=== PATIENT | male | born 1975 | race Caucasian/White ===

== ENCOUNTER 2018-08-04 09:01 | Observation (INO) | payer MEDICAID, SELFPAY ==
[2018-08-04] VITALS (19 sets, daily range): BP systolic 102–134; BP diastolic 48–84; PULSE 54–93; RESP 14–29; TEMP 36.6–37.1; O2SAT 95–98; BMI 22.5; BMI 20.9; BMI 21.0
--- NOTE | 2018-08-04 09:18 | CT_ITS ---
STUDY: CT BRAIN WITHOUT CONTRAST REASON FOR EXAM: Male, 42 years old. Blurred vision RADIATION DOSAGE (If Supplied By Facility): DLP = ( 812.98 ) mGycm TECHNIQUE: Transaxial CT imaging of the brain was performed without administration of intravenous contrast material. Individualized dose optimization techniques were used for this CT. COMPARISON: None. FINDINGS: There is no acute bleed or infarct. There are normal white matter tracts. The ventricles are normal in configuration. There is no hydrocephalus. Left maxillary sinus and bilateral ethmoid sinus disease is present. The mastoid air cells are well aerated. There is no skull fracture. CT/Brain/Head without Contrast IMPRESSION: No acute intracranial abnormality. Left maxillary sinus and bilateral ethmoid sinus disease. Electronically Signed: Ihsan Kim, at 13:53 EDT Tel , Service support ,
--- NOTE | 2018-08-04 09:18 | EKG12_ITS ---
Test Reason : Blood Pressure : / mmHG Vent. Rate : 061 BPM Atrial Rate : 061 BPM P-R Int : 144 ms QRS Dur : 084 ms QT Int : 400 ms P-R-T Axes : 082 084 058 degrees QTc Int : 402 ms Sinus rhythm with marked sinus arrhythmia Diffuse ST elevation that could represent early repolarization or pericarditis Abnormal ECG Confirmed by YASMEEN CHAKRABORTY ([id number]), editor city [place] ([id number] on 08/08/2018 11:40:09 AM Referred By: Oscar Eddy Confirmed By:RICK CHAKRABORTY
[2018-08-04 09:20] LABS: Bedside Glucose 227 mg/dL (70-110)
--- NOTE | 2018-08-04 09:21 | ED.VISSUMM ---
- ER Visit Summary Date of Service: 08/04/18 Chief Complaint: Vision changes History of Present Illness: The patient is a 42 M with blurry vision for about 30 minutes prior to arrival. This came on when he was driving. Patient reports that he has not been feeling well since yesterday. He had nausea and vomiting with chills and epigastric pain. He has been dealing with nausea and vomiting and is planning to get a scope has not been evaluated further. He described his vision changes as blurriness. This affected both eyes and all ramsey. He denies any visual cuts. Denies speech changes or facial droop. Denies focal weakness or numbness. He denies chest pain or shortness of breath. He has chills but no fever. Patient reports rare alcohol use. He is a former smoker. He uses occasional marijuana. Denies any other illicit drugs or supplements. He does take testosterone which is prescribed for him. Physical Examination: Afebrile and vital signs unremarkable. HEENT exam is unremarkable except for pinpoint pupils bilaterally. Neck is nontender with good range of motion. Heart regular. Lungs clear. Abdomen is tender in the epigastric region. No guarding or rebound. Extremities nontender with no edema. Skin appears normal in color without diaphoresis, pallor, or rash. Cranial nerves grossly intact. Normal strength and sensation. Normal cerebellar testing. NIH stroke scale is 0. Test Results: EKG, lab work, chest x-ray, CT brain, CT abdomen pelvis pending. Emergency Department Course and Treatment: It sounds like the patient's primary issue is the nausea and vomiting. This has been going on for some time, worse since yesterday. He has been having epigastric pain and chills. It sounds like the symptoms were very severe today and he had visual changes. He denies any focal neurologic changes. His NIH stroke scale is normal. I do not believe this is a stroke. I will check a CT of his brain. I also evaluated him for nausea and vomiting with epigastric pain. We will check a chest x-ray, EKG, troponin. Check CBC, CMP, lipase, and CT abdomen. Patient received fluids, morphine, and Zofran while awaiting results. While awaiting results, EKG returned. It showed anterior elevation with inverted T waves. STEMI team was activated. Dr. Eddy evaluated the patient and will take him to the Panel Saw Operator. He received aspirin and heparin. Patient is a white count of 12.7, glucose 237, BUN 30, creatinine 1.66. Hepatic panel and lipase normal. Troponin normal. Imaging is still pending. Treatment Plan: As above Disposition: Admission Impression: 1. Anterior AR 2. Nausea and vomiting This note was generated with Sentri dictation software. It may contain incorrect words, spelling, and punctuation that were not noted in review of the chart prior to signing
[2018-08-04] MEDS: Morphine 4 MG/ML Syringe IV (09:25)
[2018-08-04] MEDS: 0.9% Normal Saline 1,000 ML 1000 ML IV (09:25)
[2018-08-04] MEDS: Ondansetron 4 MG/2 ML Vial IV (09:25)
--- NOTE | 2018-08-04 09:25 | ED.DCSUM_ITS ---
- ER Visit Summary Date of Service: 08/04/18 Chief Complaint: Vision changes History of Present Illness: The patient is a 42 M with blurry vision for about 30 minutes prior to arrival. This came on when he was driving. Patient reports that he has not been feeling well since yesterday. He had nausea and vomiting with chills and epigastric pain. He has been dealing with nausea and vomiting and is planning to get a scope has not been evaluated further. He described his vision changes as blurriness. This affected both eyes and all ramsey. He denies any visual cuts. Denies speech changes or facial droop. Denies focal weakness or numbness. He denies chest pain or shortness of breath. He has chi lls but no fever. Patient reports rare alcohol use. He is a former smoker. He uses occasional marijuana. Denies any other illicit drugs or supplements. He does take testosterone which is prescribed for him. Physical Examination: Afebrile and vital signs unremarkable. HEENT exam is unremarkable except for pinpoint pupils bilaterally. Neck is nontender with good range of motion. Heart regular. Lungs clear. Abdomen is tender in the epigastric region. No guarding or rebound. Extremities nontender with no edema. Skin appears normal in color without diaphoresis, pallor, or rash. Cranial nerves grossly intact. Normal strength and sensation. Normal cerebellar testing. NIH stroke scale is 0. Test Results: EKG, lab work, chest x-ray, CT brain, CT abdomen pelvis pending. Emergency Department Course and Treatment: It sounds like the patient's primary issue is the nausea and vomiting. This has been going on for some time, worse since yesterday. He has been having epigastric pain and chills. It sounds like the symptoms were very severe today and he had visual changes. He denies any focal neurologic changes. His NIH stroke scale is normal. I do not believe this is a stroke. I will check a CT of his brain. I also evaluated him for nausea and vomiting with epigastric pain. We will ch leila a chest x-ray, EKG, troponin. Check CBC, CMP, lipase, and CT abdomen. Patient received fluids, morphine, and Zofran while awaiting results. While awaiting results, EKG returned. It showed anterior elevation with inverted T waves. STEMI team was activated. Dr. Eddy evaluated the patient and will take him to the Super[facility]. He received aspirin and heparin. Patient is a white count of 12.7, glucose 237, BUN 30, creatinine 1.66. Hepatic panel and lipase normal. Troponin normal. Imaging is still pending. Treatment Plan: As above Disposition: Admission Impression: 1. Anterior SC 2. Nausea and vomiting This note was generated with Pegg[employer] dictation software. It may contain incorrect words, spelling, and punctuation that were not noted in review of the chart prior to signing
[2018-08-04 09:27] LABS: Absolute Lymphocyte Count 0.77 X10^3/ul (0.83-4.51); Absolute Neutrophil Count 11.2 X10^3/uL (2.0-7.7); Hematocrit 41.6 % (40-54); Hemoglobin 14.8 g/dl (13.0-16.5); Lymphocyte # 0.77 X10^3/ul (4.0); Mean Corp Hgb Conc 35.6 g/gl (32-36); Mean Corpuscular Hgb 32.7 pg (27.0-32.0); Mean Corpuscular Volume 91.8 fL (80-94); Mean Platelet Vol. 10.4 fl (6.2-12.0); Monocyte# 0.77 X10^3/uL; Neutrophil # 11.17 X10^3/uL (2.7-7.7); Neutrophil % 87.8 % (47-70); Platelet Count 315 K/mm3 (150-450); RBC Distribution Width CV 13.3 % (11.6-14.6); RBC Distribution Width SD 44.5 fl (35.1-43.9); Red Blood Count 4.53 M/mm3 (4.6-6.2); White Blood Count 12.7 K/mm3 (4.4-11.0)
[2018-08-04 09:28] LABS: POSITIVE COUNT NO; POSITIVE DIFFERENTIAL NO; POSITIVE MORPHOLOGY NO
--- NOTE | 2018-08-04 09:33 | RAD_ITS ---
STUDY: X-RAY CHEST REASON FOR EXAM: Male, 42 years old. Chest pain. TECHNIQUE: Single AP portable view of the chest. COMPARISON: None. FINDINGS: The lungs are clear and expanded. There is no demonstrated pleural abnormality. Normal size heart. Normal mediastinum and denisse. Normal visualized pulmonary arteries. Normal visualized aortic arch and descending thoracic aorta. Normal visualized thoracic spine. Normal visualized ribs, clavicles, and shoulders. There is no demonstrated abnormality of the visualized soft tissue structures of the upper abdomen. RAD/Chest 1 View (Portable) IMPRESSION: No evidence of acute cardiopulmonary process. Electronically Signed: Parker Rowe DO at 9:59 EDT , Service support ,
[2018-08-04] MEDS: Aspirin 81 MG TAB.CHEW 324 MG PO (09:34)
[2018-08-04 09:43] LABS: AST(SGOT) 16 U/L (15-37); Alanine Aminotransfer ALT/SGPT 27 U/L (16-61); Albumin, Serum 3.7 g/dL (3.2-5.0); Alkaline Phosphatase 69 U/L (45-117); Anion Gap 9 (5-15); BUN 30 mg/dL (7-18); BUN/Creat Ratio 18.1 RATIO (10-20); Calcium,Total 8.5 mg/dL (8.5-10.1); Chloride 103 mmol/L (98-107); Creatinine, Serum 1.66 mg/dL (0.70-1.30); EST Glomerular Filtration Rate 49 mL/min (>60); Est Glom Filt Rate - Afr Amer 59 mL/min (>60); Estimated Creatinine Clearance 64.84 ml/min; Globulin 3.6 g/dL (2.2-4.2); Glucose 237 mg/dL (74-106); Lipase 56 U/L (73-393); Potassium 3.7 mmol/L (3.5-5.1); Protein, Total 7.3 g/dL (6.4-8.2); Sodium Level 138 mmol/L (136-145)
[2018-08-04] MEDS: Heparin 10,000 UNITS/10 ML Vial 4000 UNITS IV (09:56)
--- NOTE | 2018-08-04 10:48 | PCM.CONS.C ---
Reason for Consult Date of Consultation: 08/04/18 History of Present Illness: The patient is a 42 year old M with past medical history significant for peptic ulcer disease and low testosterone levels. He presented to the emergency room with complaints of nausea vomiting and blurred vision. According to the patient, he became nauseous yesterday. It is persistent. He has been unable to keep any food down. 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 He was driving today when he developed blurry vision. This worried him so he presented to the emergency room. In the emergency room, will work-up revealed an abnormal EKG with ST elevations and T wave inversions in leads V3, V4 and V5. Subsequently a STEMI alert was called. Patient denies any chest pain pressure or shortness of breath. Denies any orthopnea or PND. [] Past Medical History Allergies/Adverse Reactions: Allergies No Known Allergies Allergy (Verified 08/04/18 09:03) Home Medications: Ambulatory Orders Medication Instructions Recorded Lansoprazole [Prevacid] 30 mg PO DAILY 08/04/18 Testosterone Cypionate [Testone 200 mg IM QWEEK 08/04/18 Cik] Smoking Status: Former smoker Review of Systems - Review of Systems General: Denies: Fever, Anorexia HEENT: Reports: Vision Change, Blurred Vision. Denies: Head Aches Cardiovascular: Denies: Chest Discomfort, Chest Discomfort at Rest, Chest Discomfort with Exertion, Shortness of Breath, Orthopnea, PND, Peripheral Edema, Palpitations, Lightheadedness, Near Syncope, Syncope Gastrointestinal: Reports: Epigastric Discomfort - Mild epigastric discomfort, Nausea, Emesis. Denies: Hematemesis, Melena, Diarrhea Neurological: Denies: Vertigo, Falls, History of TIA, History of CVA Endocrine: Reports: - - History of low testosterone levels. On supplement.. Denies: Heat Intolerance, Cold Intolerance Hematologic/ Lymphatic: Denies: Easy Brusing, Easy Bleeding Subjectve: Comfortable. No apparent distress. Objective: Vital Signs Temp Pulse Resp BP Pulse Ox 98.4 F 73 14 123/80 H 98 08/04/18 09:04 08/04/18 09:04 08/04/18 09:29 08/04/18 09:29 08/04/18 09:04 Oxygen Delivery Method Room Air Weight: 77.5 kg Body Mass Index (BMI) 22.5 Finger Stick Blood Glucose 227 General: Awake, Alert, Oriented x 3, In Acute Distress HEENT: Atraumatic, Normocephalic Neck: Supple, No JVD Lungs: Clear to auscultation Cardiovascular: Regular Rhythm, Normal S1, Normal S2, No Murmurs, No Rubs Abdomen: Bowel Sounds Present, Soft, - - Mild tenderness in epigastrium. No rebound or guarding. Neurological: - - Moving all 4 extremities. Psych/Mental Status: Appropriate 08/04/18 09:05: WBC 12.7 H, RBC 4.53 L, Hgb 14.8, Hct 41.6, MCV 91.8, MCH 32.7 H, MCHC 35.6, RDW 13.3, RDW Differential 44.5 H, Plt Count 315, MPV 10.4, Immature Gran % (Auto) 0.200, Neut % (Auto) 87.8 H, Lymph % (Auto) 6.0 L, [place] % (Auto) 6.0, Eos % (Auto) 0.0, Baso % (Auto) 0.0, Absolute Neuts (auto) 11.2 H, Total Counted Not Reportable 08/04/18 09:05: Sodium 138, Potassium 3.7, Chloride 103, Carbon Dioxide 26.0, Anion Gap 9, BUN 30 H, Creatinine 1.66 H, Est GFR (MDRD) Af Amer 59 L, Est GFR (MDRD) Non-Af 49 L, BUN/Creatinine Ratio 18.1, Glucose 237 H, Calcium 8.5, Total Bilirubin 0.60, Troponin I < 0.015 Rhythm: Normal sinus rhythm with sinus arrhythmia. EKG: Normal sinus rhythm with marked sinus arrhythmia. ST elevation in lead V3, V4, V5 with T wave inversion. Possible anterior injury pattern. ECHO: Stress Test: Cardiac Cath: PCI: CT Surgery: Holter monitor: EPS: PPM: CXR: Chest CT Scan: Assessment/Plan 1. Persistent nausea with vomiting. EKG changes suggestive of ST elevation [place]. Patient was advised cardiac catheterization with coronary angiography and possible revascularization. Risks benefits were explained. After obtaining informed consent, patient was brought to the cardiac catheterization lab. Coronary angiography revealed no angiographic disease. MARKIE-3 flow noted in all epicardial vessels. Overall normal left ventricular systolic function with ejection fraction of 60 to 65%. EKG changes likely secondary to hyperadrenergic state with persistent nausea/vomiting or FIRE HAZARD INSPECTOR cause. Consider CT scan of the head. 2. Evaluate GI/FIRE HAZARD INSPECTOR causes of persistent nausea with vomiting as per internal medicine/ER. 3. History of low testosterone levels. 4. History of peptic ulcer disease. On long-term PPI. Recommend one-time follow-up with cardiology as outpatient in 1-2 weeks after discharge home.
--- NOTE | 2018-08-04 10:52 | CON.PCM_ITS ---
Reason for Consult Date of Consultation: 08/04/18 History of Present Illness: The patient is a 42 year old M with past medical history significant for peptic ulcer disease and low testosterone levels. He presented to the emergency room with complaints of nausea vomiting and blurred vision. According to the patient, he became nauseous yesterday. It is persistent. He has been unable to keep any food down. 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 He was driving today when he developed blurry vision. This worried him so he presented to the emergency room. In the emergency room, will work-up revealed an abnormal EKG with ST elevations and T wave inversions in leads V3, V4 and V5. Subsequently a STEMI alert was called. Patient denies any chest pain pressure or shortness of breath. Denies any orthopnea or PND. [] Past Medical History Allergies/Adverse Reactions: Allergies No Known Allergies Allergy (Verified 08/04/18 09:03) Home Medications: Ambulatory Orders Medication Instructions Recorded Lansoprazole [Prevacid] 30 mg PO DAILY 08/04/18 Testosterone Cypionate [Testone 200 mg IM QWEEK 08/04/18 Cik] Smoking Status: Former smoker Review of Systems - Review of Systems General: Denies: Fever, Anorexia HEENT: Reports: Vision Change, Blurred Vision. Denies: Head Aches Cardiovascular: Denies: Chest Discomfort, Chest Discomfort at Rest, Chest Discomfort with Exertion, Shortness of Breath, Orthopnea, PND, Peripheral Edema, Palpitations, Lightheadedness, Near Syncope, Syncope Gastrointestinal: Reports: Epigastric Discomfort - Mild epigastric discomfort, Nausea, Emesis. Denies: Hematemesis, Melena, Diarrhea Neurological: Denies: Vertigo, Falls, History of TIA, History of CVA Endocrine: Reports: - - History of low testosterone levels. On supplement.. Denies: Heat Intolerance, Cold Intolerance Hematologic/ Lymphatic: Denies: Easy Brusing, Easy Bleeding Subjectve: Comfortable. No apparent distress. Objective: Vital Signs Temp Pulse Resp BP Pulse Ox 98.4 F 73 14 123/80 H 98 08/04/18 09:04 08/04/18 09:04 08/04/18 09:29 08/04/18 09:29 08/04/18 09:04 Oxygen Delivery Method Room Air Weight: 77.5 kg Body Mass Index (BMI) 22.5 Finger Stick Blood Glucose 227 General: Awake, Alert, Oriented x 3, In Acute Distress HEENT: Atraumatic, Normocephalic Neck: Supple, No JVD Lungs: Clear to auscultation Cardiovascular: Regular Rhythm, Normal S1, Normal S2, No Murmurs, No Rubs Abdomen: Bowel Sounds Present, Soft, - - Mild tenderness in epigastrium. No rebound or guarding. Neurological: - - Moving all 4 extremities. Psych/Mental Status: Appropriate 08/04/18 09:05: WBC 12.7 H, RBC 4.53 L, Hgb 14.8, Hct 41.6, MCV 91.8, MCH 32.7 H , MCHC 35.6, RDW 13.3, RDW Differential 44.5 H, Plt Count 315, MPV 10.4, Immature Gran % (Auto) 0.200, Neut % (Auto) 87.8 H, Lymph % (Auto) 6.0 L, [place] % (Auto) 6.0, Eos % (Auto) 0.0, Baso % (Auto) 0.0, Absolute Neuts (auto) 11.2 H, Total Counted Not Reportable 08/04/18 09:05: Sodium 138, Potassium 3.7, Chloride 103, Carbon Dioxide 26.0, Anion Gap 9, BUN 30 H, Creatinine 1.66 H, Est GFR (MDRD) Af Amer 59 L, Est GFR (MDRD) Non-Af 49 L, BUN/Creatinine Ratio 18.1, Glucose 237 H, Calcium 8.5, Total Bilirubin 0.60, Troponin I < 0.015 Rhythm: Normal sinus rhythm with sinus arrhythmia. EKG: Normal sinus rhythm with marked sinus arrhythmia. ST elevation in lead V3, V4, V5 with T wave inversion. Possible anterior injury pattern. ECHO: Stress Test: Cardiac Cath: PCI: CT Surgery: Holter monitor: EPS: PPM: CXR: Chest CT Scan: Assessment/Plan 1. Persistent nausea with vomiting. EKG changes suggestive of ST elevation [place]. Patient was advised cardiac catheterization with coronary angiography and possible revascularization. Risks benefits were explained. After obtaining informed consent, patient was brought to the cardiac catheterization lab. Coronary angiography revealed no angiographic disease. MARKIE-3 flow noted in all epicardial vessels. Overall normal left ventricular systolic function with ejection fraction of 60 to 65%. EKG changes likely secondary to hyperadrenergic state with persistent nausea/vomiting or LIBRARY DIRECTOR cause. Consider CT scan of the head. 2. Evaluate GI/LIBRARY DIRECTOR causes of persistent nausea with vomiting as per internal medicine/ER. 3. History of low testosterone levels. 4. History of peptic ulcer disease. On long-term PPI. Recommend one-time follow-up with cardiology as outpatient in 1-2 weeks after discharge home.
[2018-08-04 10:55] LABS: ACT Activated Clotting Time 164 sec (74-137)
--- NOTE | 2018-08-04 11:20 | HP.PCM_ITS ---
History of Present Illness Date of Admission: 08/04/18 Chief Complaint: nausea, vomiting, epigastric pain The patient is a 42 year old M with a past medical history of peptic ulcer disease and hypo-gonadism. He was admitted through the ED on 08/04/2018 with a complaint of nausea and vomiting as well as as epigastric pain. Patient states he and his family went to eat at a [employer] style [employer] restaurant on the night before admission. He ate mainly seafood and vegetables. He subsequently started having severe intractable nausea and vomiting which lasted throughout the night and continued to this morning. Patient states emesis was of clear fluid and anything he ate, he pretty much vomited it. It was noticed that 1 of his children weights the same thing also had similar symptoms though other silhouettes at the [employer] to by a different foods he did not have similar symptoms. He decided to get into his truck to go to work but started having blurred vision and lightheadedness as well as epigastric pain and so he called an ambulance and was brought to the ED. In the ED vitals were stable and cre atinine was 1.66. Baseline not known. Chest x-ray showed no acute cardiopulmonary process and CBC showed elevated white cell count of 12.7. EKG done showed some ST elevation in lateral leads were STEMI alert was called and patient was rushed to the [facility]. He had a cardiac cath which showed normal coronaries. He is therefore been admitted to be managed for acute enteritis likely due to food poisoning. [] Past Medical History Allergies No Known Allergies Allergy (Verified 08/04/18 09:03) Home Medications: Ambulatory Orders Medication Instructions Recorded Lansoprazole [Prevacid] 30 mg PO DAILY 08/04/18 Testosterone Cypionate [Testone 200 mg IM QWEEK 08/04/18 Cik] Surgical History: no surgical history Psychiatric History: No pertinent psych hx Lives: With Family Smoking Status: Former smoker - quit a few months ago, smoked 1 pack daily Alcohol: None Drugs: None - *Family History Maternal History Items: Diabetes, Heart Disease Paternal History Items: Diabetes Review of Systems Constitutional: Reports: Anorexia, Chills, Fever, Malaise, Weakness, Weight Change - says he has lost weight over the past few months, but cannot quantify weight loss. Denies: Fatigue Eyes: Reports: Blurred vision. Denies: Double vision HEENT: Denies: Head Aches, Sinus Congestion, Sinus Drainage Cardiovascular: Denies: Chest Pain, Chest Pressure, Chest Tightness, Palpitations Respiratory: Denies: Cough, Shortness of Breath, Shortness of breath at rest, Sputum production Gastrointestinal: Reports: Abdominal Pain, Nausea, Vomiting. Denies: Constipation, Diarrhea, Dyspepsia, Hematemesis, Hematochezia, Melena Genitourinary: Denies: Dysuria Musculoskeletal: Denies: Joint Pain, Joint Tenderness Skin: Denies: Rash, Wounds Neurological: Denies: Numbness, Tingling, Focal weakness Psychiatric: Denies: Anxiety, Depression, Homicidal Ideations, Suicidal Ideations Hematologic/ Lymphatic: Denies: Easy Bruising, Easy Bleeding VTE Information - Inpt Only VTE Present on Admission: No VTE Pharm Prophylaxis ordered?: Yes - Physical Exam General: Alert, Oriented x3, Cooperative HEENT: Atraumatic Oral: Dry Mucosa Neck: Supple, No JVD, Negative Carotid Bruits Lungs: Clear to auscultation, Normal air movement, No rhonchi, No wheeze, No rales Cardiovascular: Regular rate, Regular Rhythm, Normal S1, Normal S2, No murmurs Abdomen: Bowel Sounds Present, Soft, Non Tender, Non-Distended, No Hepato- splenomegaly Extremities: No edema, Capillary Refill Less than 3 Seconds Skin: No rashes, No breakdown Musculoskeletal: No Tenderness to Palpation of Joints or Extremities, - - cath site at right wrist clean. in tight pressure dressing Lymphatic: No Cervical, Supraclavicular, or Inguinal Adenopathy Neurological: Cranial nerves II-XII grossly intact, Neuro grossly intact, Motor Exam 5/5 strength throughout Psych/Mental Status: Normal Affect, Appropriate, Alert and oriented to time, place, person, mood and affect Vital Signs Temp Pulse Resp BP Pulse Ox 98.4 F 73 14 123/80 H 98 08/04/18 09:04 08/04/18 09:04 08/04/18 09:29 08/04/18 09:29 08/04/18 09:04 Oxygen Delivery Method Room Air Weight: 170 lb 13.732 oz Body Mass Index (BMI) 22.5 Finger Stick Blood Glucose 227 Laboratory Tests Past 24 Hrs 08/04/18 08/04/18 08/04/18 09:05 09:05 10:21 WBC 12.7 H RBC 4.53 L Hgb 14.8 Hct 41.6 MCV 91.8 MCH 32.7 H MCHC 35.6 RDW 13.3 RDW Differential 44.5 H Plt Count 315 MPV 10.4 Immature Gran % (Auto) 0.200 Neut % (Auto) 87.8 H Lymph % (Auto) 6.0 L [place] % (Auto) 6.0 Eos % (Auto) 0.0 Baso % (Auto) 0.0 Absolute Neuts (auto) 11.2 H Absolute Lymphs (auto) 0.77 L Total Counted Not Reportable Activated Clotting Time 164 H Sodium 138 Potassium 3.7 Chloride 103 Carbon Dioxide 26.0 Anion Gap 9 BUN 30 H Creatinine 1.66 H Estim Creat Clear Calc 64.84 Est GFR (MDRD) Af Amer 59 L Est GFR (MDRD) Non-Af 49 L BUN/Creatinine Ratio 18.1 Glucose 237 H Calcium 8.5 Total Bilirubin 0.60 AST 16 ALT 27 Alkaline Phosphatase 69 Troponin I < 0.015 Total Protein 7.3 Albumin 3.7 Globulin 3.6 Albumin/Globulin Ratio 1.0 Lipase 56 L POC Glucose 08/04/18 09:14 POC Glucose 227 H Diagnostic Data Chest X-Ray 08/04/18 09:33 IMPRESSION: No evidence of acute cardiopulmonary process. Electronically Signed: Parker Rowe DO at 9:59 EDT , Service support , Assessment/Plan 42-year-old male admitted with a complaint of excessive nausea and vomiting as well as epigastric pain. He was found to have ST elevation in lateral leads. 1. Enteritis likely due to food poisoning * Came with blurred vision, nausea and vomiting * Cath done on account of ST elevation lateral leads showed normal coronaries. * I think epigastric pain was due to reflux and history of peptic ulcer disease. * admit to PCU with telemetry * hydrate with IVF NS @ 150cc/hr * IV zofran * clear liquid diet for now, and advance as tolerated * 2. EKG changes * EKG findings on admission were suggestive of ST elevation [place] in lateral leads. * cardiac cath showed normal coronaries * cardiology on board * 3. GERD * also has history of PUD * I think the epigastric pain was due to reflux * will give IV pantoprazole 40mg daily * 4. MAXIM: Cr is 1.66. No baseline available. Hydrate with IVF and trend Cr 5. History of hypogonadism: Stable. DVT prophylaxis: SCDs for now Code Visit OBSV E&M: [id number] Initial observation care L3
[2018-08-04] MEDS: 0.9% Normal Saline 1,000 ML 150 ML IV ×2 (12:20→19:20)
--- NOTE | 2018-08-04 14:10 | CL.D_ITS ---
Patient Name: GEE FREDERICK Study Date: 08/04/2018 Performing: Oscar Eddy MD Ht: 73 inches 185 cm : 1975 Wt: 172.2 lbs 78 kg Age: 42 Gender: male BSA: 2.01 PROCEDURE(S) PERFORMED MT67-CJG/COR/LV CLINICAL PROFILE AND INDICATIONS Heart Failure: None CAD Presentations: STEMI. Symptom onset Date/Time: 08/03/2018 Time Not Available CONCLUSIONS No angiographic CAD RECOMMENDATIONS Evaluate for non-cardiac causes of symptoms DESCRIPTION OF PROCEDURE The patient arrived to the procedure lab. The risks and benefits of the procedure as well as a full d escription of our services here and current unavailability of surgical backup were fully explained to the patient and/or their significant other prior to the catheterization. The Timeout was completed, verifying the correct patient and procedure. The patient's procedural site was prepped and draped in the usual fashion. Local anesthetic was given subcutaneously to right radial region with Lidocaine 2% . Using a modified Seldinger technique, arterial access was obtained via the right radial artery, a 6 Fr sheath was inserted. Left Coronary Artery selective angiography was performed in multiple views u sing a 5 Fr. 4.0 Clifton catheter. Right Coronary Artery selective angiography was then performed in mu ltiple views using a 5 Fr. 4.0 Clifton catheter. Left Ventriculography was performed in PATEL projection using a 5 Fr. Pigtail catheter. LV to AO pullback pressures were then recorded.The arterial sheath was pulled and a TR Band was applied for hemostasis CORONARY ANGIOGRAPHY DOMINANCE: Left Dominant LEFT HEART ASSESSMENT Left Ventricular Ejection Fraction: by LV Gram 65 % LVEDP: 7 mmHg LEFT MAIN: Short left main. No angiographic disease LEFT ANTERIOR DESCENDING ARTERY: Angiographically normal CIRCUMFLEX ARTERY: Angiographically normal RIGHT CORONARY ARTERY: Angiographically normal COMPLICATIONS No Complications PROCEDURE MEDICATIONS Oxygen: 2 L/min via nasal cannula IV Bolus: .9 NaCl 500 ml total 08/04/2018 10:32:09 SUMMARY OF HEMODYNAMIC DATA Time AIR REST ECG 10:15:09 AO 112/67 (85) SA 10:21:05 LV 123/-10, 7 10:29:08 LV 130/-11, 4 10:29:15 AOp 104/19 (52) 10:30:36 LVp 101/17, 19 10:30:46 AOp 96/75 (88) 10:30:51 Signed By Oscar Eddy MD On 08/04/2018 14:09:27 Oscar Eddy MD
[2018-08-05] MEDS: 0.9% Normal Saline 1,000 ML 150 ML IV (01:22)
[2018-08-05 01:26] VITALS: PULSE 83
[2018-08-05 01:30] VITALS: BP 96/54; PULSE 68; RESP 16; TEMP 36.9; O2SAT 98
[2018-08-05 06:04] VITALS: PULSE 47
[2018-08-05 06:23] LABS: Absolute Lymphocyte Count 3.04 X10^3/ul (0.83-4.51); Absolute Neutrophil Count 5.1 X10^3/uL (2.0-7.7); Basophil# 0.02 X10^3/uL; Basophil% 0.2 % (0-1); Eosinophil# 0.13 X10^3/uL; Eosinophils% 1.4 % (0-5); Hematocrit 39.3 % (40-54); Hemoglobin 13.2 g/dl (13.0-16.5); Lymphocyte # 3.04 X10^3/ul (4.0); Mean Corp Hgb Conc 33.6 g/gl (32-36); Mean Corpuscular Hgb 31.4 pg (27.0-32.0); Mean Corpuscular Volume 93.6 fL (80-94); Mean Platelet Vol. 10.4 fl (6.2-12.0); Monocyte% 9.8 % (0-10); Neutrophil # 5.11 X10^3/uL (2.7-7.7); Neutrophil % 55.4 % (47-70); Platelet Count 227 K/mm3 (150-450); RBC Distribution Width CV 13.5 % (11.6-14.6); RBC Distribution Width SD 44.9 fl (35.1-43.9); White Blood Count 9.2 K/mm3 (4.4-11.0)
[2018-08-05 06:28] LABS: POSITIVE COUNT NO; POSITIVE DIFFERENTIAL NO; POSITIVE MORPHOLOGY NO
[2018-08-05 06:40] VITALS: BP 114/75; PULSE 64; RESP 16; TEMP 36.6; O2SAT 100
[2018-08-05 06:49] LABS: Anion Gap 2 (5-15); BUN 15 mg/dL (7-18); BUN/Creat Ratio 15.5 RATIO (10-20); Calcium,Total 7.9 mg/dL (8.5-10.1); Chloride 113 mmol/L (98-107); Creatinine, Serum 0.97 mg/dL (0.70-1.30); EST Glomerular Filtration Rate 91 mL/min (>60); Est Glom Filt Rate - Afr Amer 110 mL/min (>60); Estimated Creatinine Clearance 103.27 ml/min; Glucose 89 mg/dL (74-106); Potassium 4.4 mmol/L (3.5-5.1); Sodium Level 143 mmol/L (136-145)
[2018-08-05 06:55] VITALS: PULSE 49
--- NOTE | 2018-08-05 10:51 | PCM.DC ---
You will use the following diet at home:: Cardiac Your food should be the consistency of: Regular Your liquids should be the consistency of: Regular/Thin Discharge Activity: Return to Normal Activity Weight Bearing Status: Weight bearing as tolerated Call your doctor if you observe: Fever of 101 or Higher, Dizziness, Swelling in the ankles, Chest pain Instructions: ED Food Poison Or Gastroenteritis Allergies/Adverse Reactions: Allergies No Known Allergies Allergy (Verified 08/04/18 09:03) Medications to take at Discharge Lansoprazole [Prevacid] 30 mg PO DAILY 08/04/18 Testosterone Cypionate [Testone Cik] 200 mg IM QWEEK 08/04/18 Primary Care Physician: [facility] ,Out of [Primary Care Provider] - Please follow up with your Primary Care Physician in: one week Test Results: Test results from this visit will be discussed in further detail at your follow-up appointment, if applicable. Please Follow Up With: Roc Romero MD When: one week Proposed Discharge Date: 08/05/18
[2018-08-05 10:55] VITALS: BP 106/72; PULSE 59; RESP 16; TEMP 36.6; O2SAT 96
--- NOTE | 2018-08-05 12:28 | PCM.DC.SUM ---
Discharge Date and Diagnosis Date of Admission: 08/04/18 Date of Discharge: 08/05/18 - Primary Discharge Diagnosis acute enteritis abnormal EKG changes Hospital Course and Treatment Imaging Results: Diagnostic Data Brain CT 08/04/18 09:18 IMPRESSION: No acute intracranial abnormality. Left maxillary sinus and bilateral ethmoid sinus disease. Electronically Signed: Ihsan Judy, at 13:53 EDT Tel , Service support , Chest X-Ray 08/04/18 09:33 IMPRESSION: No evidence of acute cardiopulmonary process. Electronically Signed: Parker Rowe, DO at 9:59 EDT , Service support , Cardiology- Dr Eddy Operations: None Procedures: Cardiac catheterization Summary of Care Provided: The patient is a 42 year old M with a past medical history of peptic ulcer disease and hypo-gonadism. He was admitted through the ED on 08/04/2018 with a complaint of nausea and vomiting as well as as epigastric pain. Patient states he and his family went to eat at a [employer] style [employer] restaurant on the night before admission. He ate mainly seafood and vegetables. He subsequently started having severe intractable nausea and vomiting which lasted throughout the night and continued to this morning. Patient states emesis was of clear fluid and anything he ate, he pretty much vomited it. It was noticed that 1 of his children weights the same thing also had similar symptoms though other silhouettes at the buffet to by a different foods he did not have similar symptoms. He decided to get into his truck to go to work but started having blurred vision and lightheadedness as well as epigastric pain and so he called an ambulance and was brought to the ED. In the ED vitals were stable and creatinine was 1.66. Baseline not known. Chest x-ray showed no acute cardiopulmonary process and CBC showed elevated white cell count of 12.7. EKG done showed some ST elevation in lateral leads were STEMI alert was called and patient was rushed to the Chemical Process Analyst. He had a cardiac cath which showed normal coronaries. He was admitted to be managed for acute enteritis likely due to food poisoning, and abnormal EKG changes. He was hydrated with IVF and given IV zofran for nausea and vomiting. Symptoms resolved completely. He remained stable and was discharged home on 08/05/18. He is to follow up with his PCP and with cardiology. Patient seen and examined prior to discharge. He had no complaints, felt well and was eager to go home. Review of systems was otherwise negative. Labs and vitals reviewed. Home medications reviewed and reconciled. o/e: Vital Signs Height 6 ft 1 in Weight: 159 lb Weight in Pounds 159.0 lbs Pulse Ox 96 Temperature 97.9 F Pulse Rate 59 Respiratory Rate 16 Blood Pressure 106/72 Blood Pressure Position Semi-Fowlers []General: Alert, Oriented x3, Cooperative HEENT: Atraumatic Oral: Dry Mucosa Neck: Supple, No JVD, Negative Carotid Bruits Lungs: Clear to auscultation, Normal air movement, No rhonchi, No wheeze, No rales Cardiovascular: Regular rate, Regular Rhythm, Normal S1, Normal S2, No murmurs Abdomen: Bowel Sounds Present, Soft, Non Tender, Non-Distended, No Hepato-splenomegaly Extremities: No edema, Capillary Refill Less than 3 Seconds Skin: No rashes, No breakdown Musculoskeletal: No Tenderness to Palpation of Joints or Extremities, - - cath site at right wrist clean. pressure dressing removed. Lymphatic: No Cervical, Supraclavicular, or Inguinal Adenopathy Neurological: Cranial nerves II-XII grossly intact, Neuro grossly intact, Motor Exam 5/5 strength throughout Psych/Mental Status: Normal Affect, Appropriate, Alert and oriented to time, place, person, mood and affect Plan as above. - Physical Exam Vital Signs Temp Pulse Resp BP Pulse Ox 97.9 F 59 L 16 106/72 96 08/05/18 10:55 08/05/18 10:55 08/05/18 10:55 08/05/18 10:55 08/05/18 10:55 Oxygen Delivery Method Room Air Weight: 159 lb Body Mass Index (BMI) 20.9 Finger Stick Blood Glucose 227 Intake and Output for Last 24 Hours 08/03/18 08/04/18 08/05/18 23:59 23:59 23:59 Intake Total 3637 / 8 1083 / 1083 Balance 3637 1083 / 1083 Laboratory Tests Past 24 Hrs 08/05/18 08/05/18 05:57 05:57 WBC 9.2 RBC 4.20 L Hgb 13.2 Hct 39.3 L MCV 93.6 MCH 31.4 MCHC 33.6 RDW 13.5 RDW Differential 44.9 H Plt Count 227 MPV 10.4 Immature Gran % (Auto) 0.200 Neut % (Auto) 55.4 Lymph % (Auto) 33.0 [place] % (Auto) 9.8 Eos % (Auto) 1.4 Baso % (Auto) 0.2 Absolute Neuts (auto) 5.1 Absolute Lymphs (auto) 3.04 Total Counted Not Reportable Sodium 143 Potassium 4.4 Chloride 113 H Carbon Dioxide 28.0 Anion Gap 2 L BUN 15 Creatinine 0.97 Estim Creat Clear Calc 103.27 Est GFR (MDRD) Af Amer 110 Est GFR (MDRD) Non-Af 91 BUN/Creatinine Ratio 15.5 Glucose 89 Calcium 7.9 L Diagnostic Data Brain CT 08/04/18 09:18 IMPRESSION: No acute intracranial abnormality. Left maxillary sinus and bilateral ethmoid sinus disease. Electronically Signed: Ihsan Kim, at 13:53 EDT Tel , Service support , Chest X-Ray 08/04/18 09:33 IMPRESSION: No evidence of acute cardiopulmonary process. Electronically Signed: Parker Rowe DO at 9:59 EDT , Service support , Discharge Diet: Low fat/ Low Cholesterol Discharge Activity: Return to Normal Activity Weight Bearing Status: Weight bearing as tolerated Call your doctor if you observe: Fever of 101 or Higher, Dizziness, Swelling in the ankles, Chest pain Home Medications: Medications to take at Discharge Lansoprazole [Prevacid] 30 mg PO DAILY 08/04/18 Testosterone Cypionate [Testone Cik] 200 mg IM QWEEK 08/04/18 Primary Care Physician: [facility],Out of [Primary Care Provider] - Please follow up with your Primary Care Physician in: one week Please Follow Up With: Roc Romero MD When: one week Patient Instructions: ED Food Poison Or Gastroenteritis Disposition: Home Minutes spent on discharge:: 35 Patient Condition:: Stable Medical Necessity - Tobacco Use Smoking Status: Former smoker - quit a few months ago, smoked 1 pack daily Meaningful Use Info Meaningful Use Diagnoses (Choose all that apply): None applicable Code Visit Inpatient E&M: 27602 Disch Hosp
--- NOTE | 2018-08-05 12:38 | DS.PCM_ITS ---
Discharge Date and Diagnosis Date of Admission: 08/04/18 Date of Discharge: 08/05/18 - Primary Discharge Diagnosis acute enteritis abnormal EKG changes Hospital Course and Treatment Imaging Results: Diagnostic Data Brain CT 08/04/18 09:18 IMPRESSION: No acute intracranial abnormality. Left maxillary sinus and bilateral ethmoid sinus disease. Electronically Signed: Ihsan Judy, at 13:53 EDT Tel , Service support , Chest X-Ray 08/04/18 09:33 IMPRESSION: No evidence of acute cardiopulmonary process. Electronically Signed: Parker Rowe, DO at 9:59 EDT , Service support , Cardiology- Dr Eddy Operations: None Procedures: Cardiac catheterization Summary of Care Provided: The patient is a 42 year old M with a past medical history of peptic ulcer disease and hypo-gonadism. He was admitted through the ED on 08/04/2018 with a complaint of nausea and vomiting as well as as epigastric pain. Patient states he and his family went to eat at a [employer] style [email or web address] restaurant on the night before admission. He ate mainly seafood and vegetables. He subsequently started having severe intractable nausea and vomiting which lasted throughout the night and continued to this morning. Patient states emesis was of clear fluid and anything he ate, he pretty much vomited it. It was noticed that 1 of his children weights the same thing also had similar symptoms though other silh ouettes at the [employer] to by a different foods he did not have similar symptoms. He decided to get into his truck to go to work but started having blurred vision and lightheadedness as well as epigastric pain and so he called an ambulance and was brought to the ED. In the ED vitals were stable and creatinine was 1.66. Baseline not known. Chest x-ray showed no acute cardiopulmonary process and CBC showed elevated white cell count of 12.7. EKG done showed some ST elevation in lateral leads were STEMI alert was called and patient was rushed to the Risk Control Representative. He had a cardiac cath which showed normal coronaries. He was admitted to be managed for acute enteritis likely due to food poisoning, and abnormal EKG changes. He was hydrated with IVF and given IV zofran for nausea and vomiting. Symptoms resolved completely. He remained stable and was discharged home on 08/05/18. He is to follow up with his PCP and with cardiology. Patient seen and examined prior to discharge. He had no complaints, felt well and was eager to go home. Review of systems was otherwise negative. Labs and vitals reviewed. Home medications reviewed and reconciled. o/e: Vital Signs Height 6 ft 1 in Weight: 159 lb Weight in Pounds 159.0 lbs Pulse Ox 96 Temperature 97.9 F Pulse Rate 59 Respiratory Rate 16 Blood Pressure 106/72 Blood Pressure Position Semi-Fowlers []General: Alert, Oriented x3, Cooperative HEENT: Atraumatic Oral: Dry Mucosa Neck: Supple, No JVD, Negative Carotid Bruits Lungs: Clear to auscultation, Normal air movement, No rhonchi, No wheeze, No ra les Cardiovascular: Regular rate, Regular Rhythm, Normal S1, Normal S2, No murmurs Abdomen: Bowel Sounds Present, Soft, Non Tender, Non-Distended, No Hepato- splenomegaly Extremities: No edema, Capillary Refill Less than 3 Seconds Skin: No rashes, No breakdown Musculoskeletal: No Tenderness to Palpation of Joints or Extremities, - - cath site at right wrist clean. pressure dressing removed. Lymphatic: No Cervical, Supraclavicular, or Inguinal Adenopathy Neurological: Cranial nerves II-XII grossly intact, Neuro grossly intact, Motor Exam 5/5 strength throughout Psych/Mental Status: Normal Affect, Appropriate, Alert and oriented to time, place, person, mood and affect Plan as above. - Physical Exam Vital Signs Temp Pulse Resp BP Pulse Ox 97.9 F 59 L 16 106/72 96 08/05/18 10:55 08/05/18 10:55 08/05/18 10:55 08/05/18 10:55 08/05/18 10:55 Oxygen Delivery Method Room Air Weight: 159 lb Body Mass Index (BMI) 20.9 Finger Stick Blood Glucose 227 Intake and Output for Last 24 Hours 08/03/18 08/04/18 08/05/18 23:59 23:59 23:59 Intake Total 3637 / 8 1083 / 1083 Balance 3637 / 3637 1083 / 1083 Laboratory Tests Past 24 Hrs 08/05/18 08/05/18 05:57 05:57 WBC 9.2 RBC 4.20 L Hgb 13.2 Hct 39.3 L MCV 93.6 MCH 31.4 MCHC 33.6 RDW 13.5 RDW Differential 44.9 H Plt Count 227 MPV 10.4 Immature Gran % (Auto) 0.200 Neut % (Auto) 55.4 Lymph % (Auto) 33.0 [place] % (Auto) 9.8 Eos % (Auto) 1.4 Baso % (Auto) 0.2 Absolute Neuts (auto) 5.1 Absolute Lymphs (auto) 3.04 Total Counted Not Reportable Sodium 143 Potassium 4.4 Chloride 113 H Carbon Dioxide 28.0 Anion Gap 2 L BUN 15 Creatinine 0.97 Estim Creat Clear Calc 103.27 Est GFR (MDRD) Af Amer 110 Est GFR (MDRD) Non-Af 91 BUN/Creatinine Ratio 15.5 Glucose 89 Calcium 7.9 L Diagnostic Data Brain CT 08/04/18 09:18 IMPRESSION: No acute intracranial abnormality. Left maxillary sinus and bilateral ethmoid sinus disease. Electronically Signed: Ihsan Kim, at 13:53 EDT Tel , Service support , Chest X-Ray 08/04/18 09:33 IMPRESSION: No evidence of acute cardiopulmonary process. Electronically Signed: Parker Rowe DO at 9:59 EDT , Service support , Discharge Diet: Low fat/ Low Cholesterol Discharge Activity: Return to Normal Activity Weight Bearing Status: Weight bearing as tolerated Call your doctor if you observe: Fever of 101 or Higher, Dizziness, Swelling in the ankles, Chest pain Home Medications: Medications to take at Discharge Lansoprazole [Prevacid] 30 mg PO DAILY 08/04/18 Testosterone Cypionate [Testone Cik] 200 mg IM QWEEK 08/04/18 Primary Care Physician: [facility] Doctor,Out of [Primary Care Provider] - Please follow up with your Primary Care Physician in: one week Please Follow Up With: Roc Romero MD When: one week Patient Instructions: ED Food Poison Or Gastroenteritis Disposition: Home Minutes spent on discharge:: 35 Patient Condition:: Stable Medical Necessity - Tobacco Use Smoking Status: Former smoker - quit a few months ago, smoked 1 pack daily Meaningful Use Info Meaningful Use Diagnoses (Choose all that apply): None applicable Code Visit Inpatient E&M: 15280 Disch Hosp
== END 2018-08-05 10:53 | disposition home or self-care (01) ==
LOC: ED 09:48 → PCU 13:14 → ICU 13:15 → PCU 13:54
PROVIDERS: Student in an Organized Health Care Education/Training Program; Admitting Provider Internal Medicine Cardiovascular Disease; Emergency Provider Emergency Medicine; Referring Provider Internal Medicine Cardiovascular Disease; Visit Provider Internal Medicine Cardiovascular Disease
DX: K52.9 Noninfective gastroenteritis and colitis, unspecified (principal); R94.31 Abnormal electrocardiogram [ECG] [EKG]; H53.8 Other visual disturbances; K21.9 Gastro-esophageal reflux disease without esophagitis; N17.9 Acute kidney failure, unspecified; Z87.11 Personal history of peptic ulcer disease; Z87.891 Personal history of nicotine dependence; Z79.899 Other long term (current) drug therapy
CPT/HCPCS: 36415; 70450; 71045; 80048; 80053; 82962; 83690; 84484; 85025; 85347; 93005; 93458; 96361; 96365; 96375; 99218; 99285; J7030; J7040; A4216; C1769; C1894; G0378; J2405; Q9967